=== PATIENT | male | born 1965 | race Caucasian/White ===

== ENCOUNTER 2017-04-05 12:30 | Day surgery (SDC) | payer OTHER ==
[2017-04-05] MEDS ORDERED: PROPOFOL 40 ML (14:15)
[2017-04-05] MEDS ORDERED: LIDOCAINE 2% (SDV) 5 ML INJ (14:15)
[2017-04-05] MEDS ORDERED: MIDAZOLAM 1 MG/ML 2 ML INJ (14:32)
[2017-04-05] MEDS ORDERED: PROPOFOL 20 ML ×2 (14:48→14:59)
[2017-04-05] MEDS ORDERED: PHENYLephrine (100 MCG/ML) 5ML SYG (14:59)
== END 2017-04-05 17:04 | disposition home or self-care (01) ==
LOC: GIL 12:30
DX: Z12.11 Encounter for screening for malignant neoplasm of colon (principal); D12.6 Benign neoplasm of colon, unspecified; K64.8 Other hemorrhoids; E78.5 Hyperlipidemia, unspecified
CPT/HCPCS: 45385; 88305